=== PATIENT | female | born 1990 | race Caucasian/White ===

== ENCOUNTER 2017-04-10 05:42 | Inpatient (IN) | payer OTHER ==
[~2017-04-10] VITALS: Ht 157.5 cm; Wt 70.3 kg
[2017-04-10 05:58] VITALS: BP 126/87
[2017-04-10] MEDS ORDERED: IV RINGERS,LACTATED 1000ML 1,000 ML IV SCH (06:02)
[2017-04-10] MEDS ORDERED: 0.9 % SODIUM CHLORIDE 10 ML DISP.SYRIN. IV PRN ×2 (06:15→06:45)
[2017-04-10] MEDS ORDERED: OXYTOCIN 30 UNIT/500 ML PREMIX 500 ML IV PRN ×2 (06:15→06:45)
[2017-04-10] MEDS ORDERED: BUTORPHANOL 2 MG/ML VIAL. IV PRN (06:15)
[2017-04-10] MEDS ORDERED: fentaNYL PF VIAL 100 MCG/2 ML VIAL IV PRN (06:15)
[2017-04-10] MEDS ORDERED: ONDANSETRON PF 4 MG/2 ML VIAL. IV PRN (06:15)
[2017-04-10] MEDS ORDERED: LIDOCAINE 1% PF 30 ML VIAL. INJ PRN (06:15)
[2017-04-10] MEDS ORDERED: TERBUTALINE 1 MG/ML VIAL. SQ PRN (06:15)
[2017-04-10] MEDS ORDERED: CLINDAMYCIN 900MG PREMIX 50 ML IV SCH (06:30)
[2017-04-10 06:42] LABS: BASO # 0.1 x10^3/uL (0.0-0.2); BASO % 1 % (0-3); EOS % 1 % (0-3); HEMATOCRIT 32.2 % (36.0-47.0); HEMOGLOBIN 10.9 g/dL (12.0-15.5); LYMPH # 2.6 x10^3/uL (1.0-4.8); LYMPH % 18 % (24-48); MEAN CORPUSCULAR HEMOGLOBIN 29 pg (25-35); MEAN CORPUSCULAR HGB CONC 34 g/dL (31-37); MEAN CORPUSCULAR VOLUME 87 fL (79-100); MONO % 6 % (0-9); NEUT % 74 % (31-73); PLATELET COUNT 342 x10^3/uL (140-400); RED CELL DISTRIBUTION WIDTH 13.3 % (11.5-14.5); WHITE BLOOD COUNT 14.4 x10^3/uL (4.0-11.0)
[2017-04-10] MEDS ORDERED: PHENYLEPH/MINERAL OIL/PETROLAT RECTAL OINTMENT 28GM TUBE. RC PRN (06:45)
[2017-04-10] MEDS ORDERED: diphenhydrAMINE HCL 25 MG CAPSULE PO PRN (06:45)
[2017-04-10] MEDS ORDERED: ACETAMINOPHEN 325 MG TABLET. PO PRN (06:45)
[2017-04-10] MEDS ORDERED: SIMETHICONE 80 MG TAB.CHEW PO PRN (06:45)
[2017-04-10] MEDS ORDERED: MMR per PROTOCOL. MC PRN (06:45)
[2017-04-10] MEDS ORDERED: MAG HYDROX/ALUMINUM HYD/SIMETH 30 ML ORAL.SUSP PO PRN (06:45)
[2017-04-10] MEDS ORDERED: ZOLPIDEM 5 MG TABLET. PO PRN (06:45)
[2017-04-10] MEDS ORDERED: MAGNESIUM HYDROXIDE 2,400 MG/30 ML ORAL.SUSP. PO PRN (06:45)
[2017-04-10] MEDS ORDERED: BENZOCAINE 20% TOPICAL AEROSOL SPRAY 57GM CAN. TP PRN (06:45)
[2017-04-10] MEDS ORDERED: HYDROCORTISONE 1% TOPICAL OINTMENT 30GM TUBE. TP PRN (06:45)
[2017-04-10 07:41] LABS: BILIRUBIN,URINE NEGATIVE (NEG); GLUCOSE,URINE NEGATIVE (NEG); NITRITE,URINE NEGATIVE (NEG); PROTEIN,URINE NEGATIVE (NEG-TRACE)
[2017-04-10 07:50] LABS: BARBITURATES NEG (NEG); BENZODIAZEPINES POS (NEG); CANNABINOIDS NEG (NEG); COCAINE NEG (NEG); METHADONE NEG (NEG); OPIATES POS (NEG); PHENCYCLIDINE NEG (NEG)
[2017-04-10] MEDS ORDERED: FERROUS SULFATE 325 MG TABLET. PO SCH (08:00)
[2017-04-10 08:10] LABS: BACTERIA,URINE 0 /HPF (0-FEW); RBC,URINE 20-40 /HPF (0-2); SQUAMOUS EPITHELIAL CELL,UR FEW /LPF
--- NOTE | 2017-04-10 08:21 | HP ---
ADMIT DATE: 04/10/2017 HISTORY OF PRESENT ILLNESS: This patient is a 26 years old white female, who came into the labor and delivery room at [facility] with a history of having contractions and her last menstrual period was on 07/17/2016, has not had much of a care. She is due on 05/06/2017. She is about 36 weeks and she is a 4, para 2, one spontaneous and admitted to the hospital because of the contractions, patient in active labor, cervix about 8 cm dilated, and 100% effaced, vertex presenting, and membranes intact. PHYSICAL EXAMINATION: VITAL SIGNS: Reveals the vital signs being stable. HEAD, EYES, NOSE, AND THROAT: Within normal limits. LUNGS: Clear. HEART: Sounds regular, sinus rhythm. ABDOMEN: 36 weeks size, vertex presenting. tones are 138 per minute. PELVIC: Shows cervix 8-cm dilated. Amniotomy will be done later. EXTREMITIES: No edema of feet. IMPRESSION: 4 para 2 labor. PLAN: Vaginal delivery. JEANNETTE NELSON MD DR: DELFINA/lydia JOB#: [id number] / [id number]
[2017-04-10] MEDS: IBUPROFEN 600 MG TABLET. PO PRN ×2 (08:34→14:15)
[2017-04-10] MEDS: oxyCODONE/APAP 5/325 1 TAB TABLET PO PRN ×3 (08:45→22:37)
--- NOTE | 2017-04-10 08:46 | OP ---
DATE OF SURGERY: This patient is a 26 years old white female, who is a 4, para 2, AB1, EDC 05/06/2017, admitted to the hospital in active labor. At the time of admission to the hospital, cervix was dilated to 8 cm, membranes intact, and heart tones of 140 per minute, vertex presenting. She did have artificial rupture of membranes and she was 8 cm dilated and had a spontaneous vaginal delivery, clear amniotic fluid seen - a live male weighing 6 pounds 15 ounces, delivered at 7:35 a.m. with the scores of 8, 9, and 9 without any problem. Cord was clamped and cut. Cord blood was taken. Placenta removed spontaneously. No hemorrhage noted. There were no perineal or vaginal tears at this time. She did receive Pitocin after delivery of the placenta. Baby is referred to plug cutter for further care and treatment. Estimated blood loss is about 300 mL. Sponge, needle, and instrument count were correct at the end of the delivery. Mother tolerated the delivery well. No complications. JEANNETTE NELSON MD DR: DELFINA/lydia JOB#: [id number] / [id number]
[2017-04-10 10:00] VITALS: BP 115/81
[2017-04-10 11:15] VITALS: BP 112/76
[2017-04-10] MEDS: DOCUSATE SODIUM 100 MG CAPSULE. PO PRN (14:15)
[2017-04-10] MEDS: SERTRALINE 50 MG TABLET. PO SCH (14:15)
[2017-04-10] MEDS: clonazePAM 1 MG TABLET PO PRN (14:15)
[2017-04-10] MEDS: LURASIDONE 40 MG TABLET. PO SCH (17:18)
[2017-04-10 17:32] VITALS: BP 117/89
[2017-04-10 19:00] VITALS: BP 113/80
[2017-04-10 23:09] VITALS: BP 111/72
[2017-04-10 23:09] LABS: RPR REFLEX Non Reactive (Non Reactive)
[2017-04-11] MEDS: IBUPROFEN 600 MG TABLET. PO PRN ×3 (02:28→15:57)
[2017-04-11] MEDS: clonazePAM 1 MG TABLET PO PRN ×3 (02:43→20:38)
[2017-04-11 05:00] VITALS: BP 115/80
[2017-04-11] MEDS: oxyCODONE/APAP 5/325 1 TAB TABLET PO PRN ×3 (05:34→20:39)
[2017-04-11] MEDS: IBUPROFEN 600 MG TABLET. PO SCH ×2 (06:00)
[2017-04-11 08:55] VITALS: BP 116/77
[2017-04-11] MEDS: DOCUSATE SODIUM 100 MG CAPSULE. PO PRN ×2 (08:57→20:38)
[2017-04-11] MEDS: SERTRALINE 50 MG TABLET. PO SCH (10:14)
[2017-04-11 11:50] VITALS: BP 111/84
--- NOTE | 2017-04-11 12:50 | PDOC ---
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 excessive bleeding Vital Signs Vital Signs Date Time Temp Pulse Resp B/P (MAP) Pulse Ox O2 Delivery O2 Flow Rate FiO2 04/11/17 11:51 18 Room Air 04/11/17 11:50 97.9 77 18 111/84 (93) 99 Room Air 97.9 04/11/17 08:55 97.8 76 20 116/77 (90) 97 Room Air 97.8 04/11/17 06:36 18 Room Air 04/11/17 05:34 18 Room Air 04/11/17 05:00 97.9 70 18 115/80 (92) 98 Room Air 97.9 04/10/17 23:09 97.7 65 18 111/72 (85) 98 Room Air 97.7 04/10/17 22:37 18 Room Air 04/10/17 19:00 98.0 90 18 113/80 (91) 96 Room Air 98.0 04/10/17 17:32 97.5 84 20 117/89 (98) 100 Room Air 97.5 04/10/17 17:13 18 Room Air I & O Intake and Output 04/11/17 07:00 Intake Total 300 ml Balance 300 ml Intake Oral 300 ml # Voids 3 PHYSICAL EXAM Physical Exam Abdomen soft Normal Lochia ASSESSMENT/PLAN Assessment/Plan Plan dismissal in AM Problems: COMMENT Lab Laboratory Tests Test 04/11/17 05:15 Hematocrit 30.9 % (36.0-47.0) JEANNETTE NELSON MD Apr 11, 2017 12:50
[2017-04-11 16:00] VITALS: BP 110/77
[2017-04-11 20:30] VITALS: BP 122/86
[2017-04-11] MEDS: LURASIDONE 40 MG TABLET. PO SCH (20:38)
[2017-04-12] MEDS: IBUPROFEN 600 MG TABLET. PO PRN ×2 (02:16→09:02)
[2017-04-12 05:52] VITALS: BP 111/78
--- NOTE | 2017-04-12 08:54 | PDOC ---
SUBJECTIVE Subjective Patient likes to go home OBJECTIVE Objective No complaints No excess bleeding Vital Signs Vital Signs Date Time Temp Pulse Resp B/P (MAP) Pulse Ox O2 Delivery O2 Flow Rate FiO2 04/12/17 05:52 97.8 89 18 111/78 (89) 96 Room Air 97.8 04/11/17 20:39 18 Room Air 04/11/17 20:30 97.7 84 18 122/86 (98) 99 Room Air 97.7 04/11/17 16:00 97.9 73 18 110/77 (88) Room Air 97.9 04/11/17 12:50 18 Room Air 04/11/17 11:51 18 Room Air 04/11/17 11:50 97.9 77 18 111/84 (93) 99 Room Air 97.9 04/11/17 08:55 97.8 76 20 116/77 (90) 97 Room Air 97.8 I & O Intake and Output 04/12/17 07:00 Intake Total 2590 ml Balance 2590 ml Intake Oral 2590 ml PHYSICAL EXAM Physical Exam Advised patient No Breast feeding ASSESSMENT/PLAN Assessment/Plan Will dismiss patient today Patient to call the office and make appointment in 6 weeks Problems: JEANNETTE NELSON MD Apr 12, 2017 08:54
[2017-04-12] MEDS: SERTRALINE 50 MG TABLET. PO SCH (09:02)
[2017-04-12] MEDS: clonazePAM 1 MG TABLET PO PRN (09:02)
[2017-04-12] MEDS: DOCUSATE SODIUM 100 MG CAPSULE. PO PRN (09:02)
[2017-04-12 14:00] VITALS: BP 116/79
[2017-04-12] MEDS: LURASIDONE 40 MG TABLET. PO SCH (17:15)
== END 2017-04-12 18:27 | disposition home or self-care (01) | DRG 775 ==
LOC: 3 SO LND 05:42 → OBSVTOIN 05:42 → 3 SO LND 05:53
PROVIDERS: ADMIT Obstetrics & Gynecology; ATTEND Obstetrics & Gynecology
PROC: 10E0XZZ Delivery of Products of Conception, External Approach (ICD-10-PCS; principal; 2017-04-10)
PROC: 10907ZC Drainage of Amniotic Fluid, Therapeutic from Products of Conception, Via Natural or Artificial Opening (ICD-10-PCS; 2017-04-10)
DX: O60.14X0 Preterm labor third trimester with preterm delivery third trimester, not applicable or unspecified (principal); Z3A.36 36 weeks gestation of pregnancy; Z37.0 Single live birth
CPT/HCPCS: 36415; 81001; 85014; 85027; 86593; 86703; 86762; 86850; 86900; 86901; 87340; 87341; G0378; G0481; J2590; J3490; J7120